=== PATIENT | male | born 1960 | race African-American/Black ===

== ENCOUNTER 2017-09-03 17:18 | Inpatient (IN) | payer OTHER ==
[2017-09-03 17:57] LABS: ADD MAN DIFF? NO
[2017-09-03 17:59] LABS: BASO # 0.1 x10^3/uL (0.0-0.2); BASO % 1 % (0-3); EOS # 0.1 x10^3/uL (0.0-0.7); EOS % 1 % (0-3); HEMATOCRIT 47.2 % (39.0-53.0); HEMOGLOBIN 16.4 g/dL (13.0-17.5); LYMPH # 1.4 x10^3/uL (1.0-4.8); LYMPH % 14 % (24-48); MEAN CORPUSCULAR HEMOGLOBIN 32 pg (25-35); MEAN CORPUSCULAR HGB CONC 35 g/dL (31-37); MEAN CORPUSCULAR VOLUME 93 fL (79-100); MONO # 0.5 x10^3/uL (0.0-1.1); MONO % 5 % (0-9); NEUT # 7.9 x10^3uL (1.8-7.7); NEUT % 79 % (31-73); PLATELET COUNT 219 x10^3/uL (140-400); RED BLOOD COUNT 5.08 x10^6/uL (4.30-5.70); RED CELL DISTRIBUTION WIDTH 14.2 % (11.5-14.5)
[2017-09-03 18:10] LABS: ANION GAP 10 (6-14); BLOOD UREA NITROGEN 19 mg/dL (8-26); BUN/CREATININE RATIO 15 (6-20); CALCIUM 9.4 mg/dL (8.5-10.1); CARBON DIOXIDE 26 mmol/L (21-32); CHLORIDE 106 mmol/L (98-107); CREATININE 1.3 mg/dL (0.7-1.3); GFR 56.7; GLUCOSE 118 mg/dL (70-99); POTASSIUM 3.5 mmol/L (3.5-5.1); SODIUM 142 mmol/L (136-145)
[2017-09-03] MEDS: IV NORMAL SALINE 1000ML BAG 1,000 ML IV (18:15)
[2017-09-03] MEDS: ASPIRIN CHEWABLE 81 MG TABLET. PO (18:15)
[2017-09-03 18:16] LABS: ALBUMIN 4.1 g/dL (3.4-5.0); ALBUMIN/GLOBULIN RATIO 1.1 (1.0-1.7); ALK PHOS 93 U/L (46-116); ALT (SGPT) 25 U/L (16-63); AST (SGOT) 38 U/L (15-37); MAGNESIUM 1.9 mg/dL (1.8-2.4); TOTAL BILIRUBIN 0.5 mg/dL (0.2-1.0); TOTAL PROTEIN 7.8 g/dL (6.4-8.2)
[2017-09-03] MEDS: NITROGLYCERIN SUBLINGUAL 0.4 MG BOTTLE OF 25. SL ×3 (18:16→18:41)
[2017-09-03 18:20] LABS: TROPONINI 3.284 ng/mL (0.000-0.055)
[2017-09-03 18:22] LABS: NT-PRO BNP 55 pg/mL (0-124)
[2017-09-03 18:24] LABS: TROPONIN BY ISTAT 0.48 ng/ml (<0.08)
[2017-09-03] MEDS ORDERED: CONTRAST GIVEN. MC (18:30)
[2017-09-03] MEDS ORDERED: HEPARIN for IV BOLUS 10,000 UNIT/10 ML VIAL. IV (18:30)
[2017-09-03 18:34] LABS: INR 1.1 (0.8-1.1); PARTIAL THROMBOPLASTIN TIME 28 SEC (24-38); PROTHROMBIN TIME PATIENT 13.2 SEC (11.7-14.0)
[2017-09-03] MEDS: IOHEXOL 300 MG/ML 100ML VIAL. IV (18:35)
[2017-09-03 18:45] LABS: CKMB INDEX 2.8 % (0-4); CREATINE KINASE 493 U/L (39-308)
[2017-09-03] MEDS ORDERED: ONDANSETRON PF 4 MG/2 ML VIAL. IV (18:45)
[2017-09-03] MEDS: HEPARIN for IV BOLUS 10,000 UNIT/10 ML VIAL. IV (18:46)
[2017-09-03] MEDS: HEPARIN 25,000UTS/500ML PREMIX 500 ML IV (18:49)
[2017-09-03] MEDS: NITROGLYCERIN PREMIX 250 ML IV (19:21)
[2017-09-03] MEDS: MORPHINE SULFATE 4 MG/ML DISP.SYRIN. IV (21:42)
[2017-09-04 03:50] LABS: HEMATOCRIT 44.1 % (39.0-53.0); HEMOGLOBIN 15.4 g/dL (13.0-17.5); MEAN CORPUSCULAR HEMOGLOBIN 33 pg (25-35); MEAN CORPUSCULAR HGB CONC 35 g/dL (31-37); MEAN CORPUSCULAR VOLUME 94 fL (79-100); PLATELET COUNT 200 x10^3/uL (140-400); RED BLOOD COUNT 4.71 x10^6/uL (4.30-5.70); RED CELL DISTRIBUTION WIDTH 14.6 % (11.5-14.5); WHITE BLOOD COUNT 10.4 x10^3/uL (4.0-11.0)
[2017-09-04 04:03] LABS: UNFRACTIONATED HEPARIN TESTING 0.22 IU/mL (0.30-0.70)
[2017-09-04] MEDS: MORPHINE SULFATE 4 MG/ML DISP.SYRIN. IV (04:10)
[2017-09-04 07:56] LABS: ANION GAP 10 (6-14); BLOOD UREA NITROGEN 16 mg/dL (8-26); CALCIUM 8.3 mg/dL (8.5-10.1); CARBON DIOXIDE 26 mmol/L (21-32); CHLORIDE 105 mmol/L (98-107); CREATININE 1.2 mg/dL (0.7-1.3); GFR 75.2; GLUCOSE 107 mg/dL (70-99); POTASSIUM 3.7 mmol/L (3.5-5.1); SODIUM 141 mmol/L (136-145)
[2017-09-04 08:04] LABS: CHOLESTEROL 148 mg/dL (0-200); CHOLESTEROL/HDL RATIO 5.5; HDLC 27 mg/dL (40-60); LDLC 96 mg/dL (0-100); NON-HDL CHOLESTEROL 121 mg/dL (0-129); TRIGLYCERIDES 123 mg/dL (0-150); VLDLC 25 mg/dL (0-40)
[2017-09-04 09:10] LABS: TROPONINI 28.532 ng/mL (0.000-0.055)
[2017-09-04] MEDS ORDERED: IODIXANOL 320 MG/ML 100 ML VIAL. ×2 (09:11→09:57)
[2017-09-04] MEDS ORDERED: LIDOCAINE 2% 20 ML VIAL. (09:12)
[2017-09-04] MEDS ORDERED: fentaNYL PF VIAL 100 MCG/2 ML VIAL (09:13)
[2017-09-04] MEDS ORDERED: NITROGLYCERIN 200 MCG/2 ML SYRINGE FOR CATH/VASC LAB. ×2 (09:14→10:10)
[2017-09-04] MEDS ORDERED: MIDAZOLAM HCL/PF 2 MG/2 ML VIAL. (09:14)
[2017-09-04] MEDS ORDERED: VERAPAMIL 5 MG/2 ML VIAL. (09:14)
[2017-09-04] MEDS ORDERED: HEPARIN for IV BOLUS 10,000 UNIT/10 ML VIAL. (09:14)
[2017-09-04] MEDS ORDERED: BIVALIRUDIN 250 MG VIAL. IV (09:56)
[2017-09-04] MEDS ORDERED: CONTRAST GIVEN. MC (10:00)
[2017-09-04] MEDS ORDERED: PRASUGREL 10 MG TABLET. (10:10)
[2017-09-04] MEDS ORDERED: ASPIRIN 325 MG TABLET (10:10)
[2017-09-04] MEDS: ASPIRIN 325 MG TABLET PO (10:15)
[2017-09-04] MEDS: PRASUGREL 10 MG TABLET. PO (10:29)
[2017-09-04] MEDS: NITROGLYCERIN 200 MCG/2 ML SYRINGE FOR CATH/VASC LAB. ICAR (10:30)
[2017-09-04] MEDS: BIVALIRUDIN 250 MG VIAL. IV (10:30)
[2017-09-04] MEDS: LIDOCAINE 2% 20 ML VIAL. IJ (10:30)
[2017-09-04] MEDS: fentaNYL PF VIAL 100 MCG/2 ML VIAL IV (10:31)
[2017-09-04] MEDS: IODIXANOL 320 MG/ML 100 ML VIAL. IART (10:31)
[2017-09-04] MEDS: MIDAZOLAM HCL/PF 2 MG/2 ML VIAL. IV (10:31)
[2017-09-04] MEDS: NICOTINE 14MG PATCH. TD (14:48)
[2017-09-04] MEDS: amLODIPine BESYLATE 5 MG TABLET PO (17:24)
[2017-09-04] MEDS: METOPROLOL TART IMMED RELEASE 25 MG TABLET. PO (21:17)
[2017-09-04] MEDS: ATORVASTATIN CALCIUM 40 MG TABLET. PO (21:17)
[2017-09-04] MEDS: HYDROcodone/APAP 5/325MG 1 TAB TABLET PO (21:43)
[2017-09-05 02:18] LABS: HEMOGLOBIN A1C 5.9 % (4.8-5.6)
[2017-09-05] MEDS: ASPIRIN ENTERIC COATED 81 MG TABLET.DR. PO (09:03)
[2017-09-05] MEDS: LISINOPRIL 5 MG TABLET. PO (09:03)
[2017-09-05] MEDS: PRASUGREL 10 MG TABLET. PO (09:03)
[2017-09-05] MEDS: METOPROLOL TART IMMED RELEASE 25 MG TABLET. PO (09:03)
[2017-09-05 09:10] LABS: ANION GAP 6 (6-14); BLOOD UREA NITROGEN 11 mg/dL (8-26); CALCIUM 9.3 mg/dL (8.5-10.1); CARBON DIOXIDE 30 mmol/L (21-32); CHLORIDE 102 mmol/L (98-107); CREATININE 1.2 mg/dL (0.7-1.3); GFR 75.2; GLUCOSE 109 mg/dL (70-99); POTASSIUM 4.2 mmol/L (3.5-5.1); SODIUM 138 mmol/L (136-145)
[2017-09-05] MEDS: HYDROcodone/APAP 5/325MG 1 TAB TABLET PO (12:36)
== END 2017-09-05 16:48 | disposition home or self-care (01) | DRG 246 ==
LOC: ER 17:18 → 2 SOUTH 18:26
PROC: 027034Z Dilation of Coronary Artery, One Artery with Drug-eluting Intraluminal Device, Percutaneous Approach (ICD-10-PCS; principal; 2017-09-04)
PROC: B2111ZZ Fluoroscopy of Multiple Coronary Arteries using Low Osmolar Contrast (ICD-10-PCS; 2017-09-04)
PROC: B2151ZZ Fluoroscopy of Left Heart using Low Osmolar Contrast (ICD-10-PCS; 2017-09-04)
PROC: 4A023N7 Measurement of Cardiac Sampling and Pressure, Left Heart, Percutaneous Approach (ICD-10-PCS; 2017-09-04)
DX: I21.4 Non-ST elevation (NSTEMI) myocardial infarction (principal); I50.33 Acute on chronic diastolic (congestive) heart failure; F17.210 Nicotine dependence, cigarettes, uncomplicated; I11.0 Hypertensive heart disease with heart failure; I20.9 Angina pectoris, unspecified; I45.10 Unspecified right bundle-branch block; J44.9 Chronic obstructive pulmonary disease, unspecified; Z82.49 Family history of ischemic heart disease and other diseases of the circulatory system; Z98.61 Coronary angioplasty status; M19.90 Unspecified osteoarthritis, unspecified site; Z86.718 Personal history of other venous thrombosis and embolism; Z87.81 Personal history of (healed) traumatic fracture
CPT/HCPCS: 36415; 71045; 71275; 80048; 80053; 80061; 82553; 83036; 83735; 83880; 84484; 85025; 85027; 85520; 85610; 85730; 92928; 93005; 93306; 93458; 96365; 96368; 96375; 99152; 99153; 99285; 99285-25; 99406; C1713; C1725; C1769; C1771; C1892; G0269; J0583; J1644; J2250; J2270; J3010; J3490; J7030; Q9967

== ENCOUNTER 2017-10-19 08:39 | Emergency (ER) | payer MEDICARE, OTHER ==
[2017-10-19] MEDS: KETOROLAC 30 MG/ML INJ. IM (09:21)
[2017-10-19] MEDS: ORPHENADRINE CITRATE 60 MG/2 ML VIAL. IM (09:25)
[2017-10-19] MEDS: HYDROcodone/APAP 5/325MG 1 TAB TABLET PO (09:26)
== END 2017-10-19 10:35 | disposition home or self-care (01) ==
LOC: ER 08:39
DX: M54.41 Lumbago with sciatica, right side (principal); I10 Essential (primary) hypertension
CPT/HCPCS: 96372; 99284; J1885; J2360

== ENCOUNTER → 2017-11-24 | Outpatient (CLI) | payer MEDICARE, OTHER ==
[2017-10-19 08:49] VITALS: BP 175/100
[~2017-11-24] MED LIST: ASPI-612 PO; ATOR40TA59 PO; HYDR-2758 PO; LISI-338 PO; METO25TA4 PO; NAPR500T8 PO; Nicotine 14MG TD; ORPH100T PO; PRAS10TA9 PO
--- NOTE | 2017-11-24 17:12 | RAD ---
MR#: [id number] Date of Study: 11/24/2017 Ordering Physician: CARLEEN GARCIA, Referring Physician: CARLEEN GARCIA, Tech: Tim Jamse MBA, RDMS, RVT, RDCS, RTR APPROVED REPORT Patient Location: OUT-PATIENT Indications RT GROIN PAIN/S/P HEART CATH Findings Grayscale images of the right groin did not reveal any obvious evidence of hematoma or fluid collecti on. Spectral waveforms of the right common femoral artery are within normal limits without any obvious ev idence of stenosis. There is no evidence of a pseudoaneurysm or AV fistula. Critical Notification Critical Value: No <Conclusion> No pseudoaneurysm or stenosis noted. Signed by : Carleen Garcia, Electronically Approved : 11/24/2017 17:10:44
== END | disposition home or self-care (01) ==
LOC: US 15:59
PROVIDERS: ATTEND Internal Medicine Cardiovascular Disease
DX: R10.31 Right lower quadrant pain (principal); I11.0 Hypertensive heart disease with heart failure; I50.33 Acute on chronic diastolic (congestive) heart failure; I25.2 Old myocardial infarction; J44.9 Chronic obstructive pulmonary disease, unspecified; I25.10 Atherosclerotic heart disease of native coronary artery without angina pectoris; Z86.718 Personal history of other venous thrombosis and embolism; Z82.49 Family history of ischemic heart disease and other diseases of the circulatory system; Z98.61 Coronary angioplasty status
CPT/HCPCS: 93926

== ENCOUNTER → 2019-11-19 | Outpatient (CLI) | payer MEDICARE ==
[2017-10-19 08:49] VITALS: BP 175/100
[~2019-11-19] MED LIST changes: -ASPI-612 PO; +ASPI-886 PO; -HYDR-2758 PO; +HYDR-2761 PO
--- NOTE | 2019-11-20 11:57 | CARD ---
MR#: [id number] Date of Study: 11/19/2019 Ordering Physician: CARLEEN GARCIA, Referring Physician: CARLEEN GARCIA, Tech: Savanna Cohen [facility] APPROVED REPORT EXAM: Two-dimensional and M-mode echocardiogram with Doppler and color Doppler. Other Information Quality : Good Rhythm : PVCS INDICATION Abnormal ECG Cardiac Disease: CAD 2D DIMENSIONS RVDd3.1 (2.9-3.5cm)Left Atrium(2D)3.0 (1.6-4.0cm) IVSd1.1 (0.7-1.1cm)Aortic Root(2D)3.1 (2.0-3.7cm) LVDd4.9 (3.9-5.9cm)LVOT Diameter1.9 (1.8-2.4cm) PWd1.1 (0.7-1.1cm)LVDs2.9 (2.5-4.0cm) FS (%) 30.0 %SV78.8 ml LVEF(%)60.0 (>50%) Aortic Valve AoV Peak Ganesh.103.3cm/sAoV VTI17.9cm AO Peak GR.4.3mmHgLVOT Peak Ganesh.90.7cm/s LVOT VTI 18.77cmAO Mean GR.3mmHg JAYSON (VMAX)2.35so7JDJ (VTI)2.87cm2 Mitral Valve MV E Ohfeizsn35.8cm/sMV DECEL [id number] MV A Qcwbsoiz90.1cm/sMV NSD99fy E/A Ratio0.7MVA (PHT)4.10cm2 TDI E/Lateral E'12.7E/Medial E'9.9 Pulmonary Vein S1 Ivjezntq97.0cm/sD2 Slrwyara12.4cm/s LEFT VENTRICLE The left ventricle is normal size. There is normal left ventricular wall thickness. The left ventricu lar systolic function is normal and the ejection fraction is within normal range. The Ejection Fracti on is 55-60%. There is normal LV segmental wall motion. Transmitral Doppler flow pattern is Grade I-a bnormal relaxation pattern. RIGHT VENTRICLE The right ventricle is normal size. The right ventricular systolic function is normal. ATRIA The left atrium size is normal. The right atrium size is normal. The interatrial septum is intact wit h no evidence for an atrial septal defect or patent foramen ovale as noted on 2-D or Doppler imaging. AORTIC VALVE The aortic valve is normal in structure and function. Doppler and Color Flow revealed no significant aortic regurgitation. There is no significant aortic valvular stenosis. MITRAL VALVE The mitral valve is calcified but opens well. There is no evidence of mitral valve prolapse. There is no mitral valve stenosis. Doppler and Color Flow revealed no mitral valve regurgitation noted. TRICUSPID VALVE The tricuspid valve is normal in structure and function. Doppler and Color Flow revealed no tricuspid valve regurgitation noted. There is no tricuspid valve stenosis. PULMONIC VALVE The pulmonic valve is not well visualized. Doppler and Color Flow revealed no pulmonic valvular regur gitation. There is no pulmonic valvular stenosis. GREAT VESSELS The aortic root is normal in size. The ascending aorta is normal in size. The IVC is normal in size a nd collapses >50% with inspiration. PERICARDIAL EFFUSION There is no evidence of significant pericardial effusion. Critical Notification Critical Value: No <Conclusion> The left ventricular systolic function is normal and the ejection fraction is within normal range. Th e Ejection Fraction is 55-60%. There is normal LV segmental wall motion. Signed by : Carleen Garcia, Electronically Approved : 11/20/2019 11:56:53
== END | disposition home or self-care (01) ==
LOC: ECHO 13:46
PROVIDERS: ATTEND Internal Medicine Cardiovascular Disease
DX: I34.0 Nonrheumatic mitral (valve) insufficiency (principal); I25.10 Atherosclerotic heart disease of native coronary artery without angina pectoris
CPT/HCPCS: 93306